=== PATIENT | female | born 1940 | race Caucasian/White ===

== ENCOUNTER → 2021-10-12 | Day surgery (SDC) | payer OTHER ==
[~2021-10-12] VITALS: Ht 167.6 cm; Wt 90.7 kg
[~2021-10-12] MED LIST: CALCIUM CHLOR(10%) 100MG/ML 10ML SYRINGE IV ONE; CONJ ESTROGENS 0.625MG/GM VAG CRM 30GM PV ONE; DOXAPRAM HCL 20 MG/ML 20ML VIAL INJ IV ONE; DexAMETHasone SOD PHOS 10MG/1ML VIAL INJ ONE; FURO20TA3 PO; GABA100C9 PO; LABETALOL HCL 5 MG/ML 4ML SYRINGE IV PRN; LABETALOL HCL 5 MG/ML ML 20ML VIAL IV ONE; LIDOCAINE 1% HCL (LOCAL ANESTH.) INJ 20ML MDV ONE; METO25TA5 PO; OMEP20TA PO; ONDANSETRON HCL 4 MG/2 ML VIAL IV PRN; ONDANSETRON HCL 4 MG/2 ML VIAL ONE; OXYB5TAB24 PO; ROCURONIUM 10MG/ML 10ML VIAL IV ONE; SIMV-13 PO; SUCCINYLCHOLINE CHLORIDE 20 MG/ML 10ML VIAL IV ONE; TRAZ100T3 PO; VENL150T19 PO; WARF3TAB22 PO; ceFAZolin 1GM/50ML 100 ML IV ONE; fentaNYL CITRATE 100 MCG/2 ML VL IV PRN; fentaNYL CITRATE 100 MCG/2 ML VL ONE
[2021-10-12 16:42] VITALS: BP 140/57
== END | disposition home or self-care (01) ==
LOC: SUR 09:30
PROVIDERS: ATTEND Obstetrics & Gynecology
DX: N39.3 Stress incontinence (female) (male) (principal); N81.11 Cystocele, midline; D28.1 Benign neoplasm of vagina; N76.89 Other specified inflammation of vagina and vulva; I13.10 Hypertensive heart and chronic kidney disease without heart failure, with stage 1 through stage 4 chronic kidney disease, or unspecified chronic kidney disease; N18.9 Chronic kidney disease, unspecified; I48.91 Unspecified atrial fibrillation; E78.00 Pure hypercholesterolemia, unspecified; E03.9 Hypothyroidism, unspecified; E78.5 Hyperlipidemia, unspecified; K21.9 Gastro-esophageal reflux disease without esophagitis; Z90.89 Acquired absence of other organs; Z86.73 Personal history of transient ischemic attack (TIA), and cerebral infarction without residual deficits; Z90.49 Acquired absence of other specified parts of digestive tract; Z98.890 Other specified postprocedural states; Z79.899 Other long term (current) drug therapy; Z20.822 Contact with and (suspected) exposure to COVID-19; Z88.5 Allergy status to narcotic agent; Z80.8 Family history of malignant neoplasm of other organs or systems
CPT/HCPCS: 57107; 57240; 57288; 88305; C1771; J0330; J0690; J1100; J2001; J2405; J3010; Q4140; U0003